=== PATIENT | female | born 1990 | race Caucasian/White ===

== ENCOUNTER 2020-12-09 10:52 | Inpatient (IN) | payer MEDICAID ==
[2020-12-09] VITALS (17 sets, daily range): BP systolic 77–116; BP diastolic 35–73; PULSE 52–77; TEMP 97.5–98.3
[~2020-12-09] VITALS: Ht 162.6 cm; Wt 101.8 kg
[2020-12-09] MEDS ORDERED: PRENATAL TABLET PO (11:05)
[2020-12-09] MEDS ORDERED: TUMS500 MG (11:06)
[2020-12-09 11:42] LABS: BASO % 0.1 % (0.0-2.0); EOS % 0.1 % (0-4.0); GRAN # 7.5 (1.4-6.5); GRAN % 78.8 % (42.2-75.2); HEMOGLOBIN 10.1 g/dl (12.5-16.0); LYMPH # 1.5 (1.2-3.4); LYMPH % 16.2 % (20.0-51.0); MEAN CELL VOLUME 83 fl (80.0-100.0); MEAN CORPUSCULAR HEMOGLOBIN 26 pg (27.0-31.0); MEAN CORPUSCULAR HGB CONC 32 g/dl (33.0-37.0); MEAN PLATELET VOLUME 10.2 fl (7.4-10.4); MONO # 0.4 (0.1-0.6); MONO % 4.4 % (1.7-9.3); PLATELET COUNT 245 K/mm3 (130-400); RED BLOOD COUNT 3.89 M/mm3 (4.10-5.30)
[2020-12-09 11:43] LABS: HEMATOCRIT 32.1 % (37.0-47.0)
--- NOTE | 2020-12-09 13:00 | NUR ---
PT AMBULATES TO SUITE WITH THIS RN AND . SITS ON EDGE OF OR BED FOR SPINAL PLACEMENT BY SOPHIE RODRIGUEZ. REPOSITIONED LYING DOWN AFTER SPINAL WITH BLANKET WEDGE UNDER RIGHT HIP. FHT'S 128. GRULLON CATHETER PLACED. DURAPREP TO ABDOMEN. DELIVERY OF FEMALE INFANT BY DR BENITEZ AND DR RICHMOND.
--- NOTE | 2020-12-09 13:40 | NUR ---
PT TO PACU AFTER DISCHARGE FROM OPERATING ROOM. AWAKE AND ALERT. DENIES PAIN. FUNDUS FIRM WITH SMALL AMOUNT OF CLOTS EXPRESSED WITH FUNDAL MASSAGE. ASSESSMENT COMPLETED.
--- NOTE | 2020-12-09 14:15 | NUR ---
PT TO ROOM AFTER DISCHARGE FROM PACU. AWAKE AND ALERT. FUNDUS FIRM WITH SMALL AMOUNT OF BLEEDING. DENIES PAIN
--- NOTE | 2020-12-09 17:39 | NUR ---
GRULLON EMPTIED. URINE VERY CONCENTRATED. ENCOURAGED PT TO DRINK LOTS OF WATER. PT REPORTS "I HAVEN'T BEEN DRINKING. I'VE JUST BEEN SLEEPING."
[2020-12-10 04:00] VITALS: BP 110/64; PULSE 72; TEMP 98.1
[2020-12-10 07:17] LABS: HEMATOCRIT 30.9 % (37.0-47.0); HEMOGLOBIN 9.6 g/dl (12.5-16.0)
[2020-12-10 07:25] VITALS: BP 111/54; PULSE 78; TEMP 98.7
[2020-12-10] MEDS ORDERED: IBU600 MG PO (07:48)
[2020-12-10] MEDS ORDERED: PERCOCET 325 MG1 TA2 PO (07:48)
--- NOTE | 2020-12-10 08:58 | NUR ---
Initial visit; Family thanked [employer] Senior Sergeant for offering congratulations and God's blessings for the of their daughter. Infantry Senior Sergeant thanked family for choosing [facility].
[2020-12-10 12:15] VITALS: BP 109/68; PULSE 85; TEMP 98.4
[2020-12-10 17:30] VITALS: BP 100/50; PULSE 71; TEMP 98
[2020-12-10 19:10] VITALS: BP 103/65; PULSE 67; TEMP 97.9
[2020-12-11 02:30] VITALS: BP 103/74; PULSE 53; TEMP 98
[2020-12-11 07:15] VITALS: BP 113/50; PULSE 62; TEMP 97.8
[2020-12-11 16:15] VITALS: BP 121/62; PULSE 70; TEMP 98.4
[2020-12-11 20:00] VITALS: BP 110/56; PULSE 60; TEMP 97.5
[2020-12-12 01:00] VITALS: BP 124/68; PULSE 66; TEMP 97.8
[2020-12-12 08:15] VITALS: BP 109/63; PULSE 69; TEMP 97.7
--- NOTE | 2020-12-12 10:50 | NUR ---
1045 DISCHARGE INSTRUCTIONS REVIEWED WITH PATIENT. PATIENT VERBALIZED UNDERSTANDING. WILL NOTIFY THIS RN WHEN READY TO LEAVE.
--- NOTE | 2020-12-12 11:05 | NUR ---
1100 ALL PERSONAL BELONGINGS GATHERED FROM PATIENT ROOM. PATIENT LEFT AMBULATORY AND IN NO APPARENT DISTRESS. PATIENT ACCOMPANIED BY SPOUSE AND THIS RN.
== END 2020-12-12 11:00 | disposition home or self-care (01) | DRG 788 ==
LOC: OB 10:52
PROVIDERS: ADMIT Obstetrics & Gynecology
PROC: 10D00Z1 Extraction of Products of Conception, Low, Open Approach (ICD-10-PCS; principal; 2020-12-09)
DX: O34.211 Maternal care for low transverse scar from previous cesarean delivery (principal); Z37.0 Single live birth; O24.420 Gestational diabetes mellitus in childbirth, diet controlled; O99.02 Anemia complicating childbirth; D64.9 Anemia, unspecified; Z3A.38 38 weeks gestation of pregnancy
CPT/HCPCS: J0690; J1100; J1885; J2370; J2590; J7120

== ENCOUNTER 2023-02-15 20:49 | Inpatient (IN) | payer MEDICAID ==
[2023-02-15] VITALS (10 sets, daily range): BP systolic 93–144; BP diastolic 56–99; PULSE 48–67
[~2023-02-15] VITALS: Ht 162.6 cm; Wt 96.4 kg
[~2023-02-15 20:49] MED LIST: IBU600 MG PO; PERCOCET 325 MG1 TA2 PO; PRENATAL TABLET PO; TUMS500 MG
--- NOTE | 2023-02-15 20:50 | NUR ---
2049- PT PRESENTS TO LDR COMPLAINING OF CONTRACTIONS, AMBULATORY TO ROOM LR3, CHANGED INTO GOWN. 2053- EFM X2 APPLIED. PT DENIES LEAKING AMNIOTIC FLUID, DENIES VAGINAL BLEEDING, AND STATES SHE IS FEELING BABY MOVE. SHE STATES SHE HAS BEEN HAVING "SOME" CONTRACTIONS ALL DAY BUT GOT MORE UNCOMFORTABLE AROUND 1900 TONIGHT. STATES SHE HAS NOT REALLY FELT LABOR CONTRACTIONS BEFORE WITH HER OTHER PREGNANCIES AND STATES "THIS REALLY HURTS." PT IS KNOWN TO HAVE UTERINE WINDOW WITH THIS AND ABDOMEN IS PALPATED SOFT BETWEEN CONTRACTIONS THE MONITORS ARE APPLIED. 2057- SVE BY THIS NURSE 0-1/-3 WITH VERY POSTERIOR CERVIX. NO FLUID POOLING OR BLOOD NOTED WITH EXAM.
--- NOTE | 2023-02-15 21:08 | NUR ---
2107- MONITORS ADJUSTED. 2109- O2 SAT MONITOR REMOVED FOR IV START. 2115- MONITORS ADJUSTED. 2124- CONSENTS SIGNED AT THIS TIME.
--- NOTE | 2023-02-15 21:19 | NUR ---
Dr. Whelan at pt bedside. Pt evaluated, strip reviewed. POC for section POC discussed. Risks and benefits of section discussed. Questions, concerns, and needs encouraged. Pt verbalized understanding and agreement of POC with no questions, concerns, and needs.
[2023-02-15 21:21] LABS: BASO % 0.1 % (0.0-2.0); GRAN # 11.9 K/mm3 (1.4-6.5); GRAN % 85.3 % (42.2-75.2); HEMATOCRIT 33.7 % (37.0-47.0); HEMOGLOBIN 11.1 g/dl (12.5-16.0); LYMPH # 1.3 K/mm3 (1.2-3.4); LYMPH % 9.1 % (20.0-51.0); MEAN CELL VOLUME 80 fl (80.0-100.0); MEAN CORPUSCULAR HEMOGLOBIN 27 pg (27-31); MEAN CORPUSCULAR HGB CONC 33 g/dl (33.0-37.0); MONO # 0.6 K/mm3 (0.1-0.6); MONO % 4.1 % (1.7-9.3); PLATELET COUNT 276 K/mm3 (130-400); RED BLOOD COUNT 4.19 M/mm3 (4.10-5.30); REDCELL DISTRIBUTION WIDTH-CV 13.8 % (11.5-14.5)
--- NOTE | 2023-02-15 21:30 | NUR ---
This nurse and Judi Patino, RN at pt bedside prepping pt for section. Pt abd scrubbed with soap and water. Pt mons pubis area clipped. Pt PPE donned. Pt spouse PPE given an donned. This nurse and Judi Patino, air transport professionals pt, via hospital bed, to OR for emergent section.
[2023-02-15] MEDS ORDERED: PRENATAL TABLET PO (23:15)
[2023-02-15] MEDS ORDERED: GLUCOPHAGE500 MG/TAB PO (23:16)
[2023-02-15] MEDS ORDERED: TUMS EXTRA STR750 MG PO (23:16)
[2023-02-16] VITALS (9 sets, daily range): BP systolic 105–124; BP diastolic 43–76; PULSE 48–87; TEMP 98.1
--- NOTE | 2023-02-16 00:22 | NUR ---
[id number]: FHR tracing intermittently due to position. This nurse at pt bedside palpating pt abdomen, with pt consent and explanation, attempting to readjust external FHR monitor. [id number], monitors adjusted. 2121, monitors adjusted. 2127, monitors adjusted. 2128, monitors adjusted. 2133: Timeout not completed due to emergent nature for section and pt need of general anesthesia.
--- NOTE | 2023-02-16 00:35 | NUR ---
2133: This nurse attempts to find FHR in the OR. Unable to obtain FHR, Dr. Whelan states to quit attempting due to the emergent nature of the case.
[2023-02-16 07:46] LABS: HEMATOCRIT 27.6 % (37.0-47.0)
[2023-02-16 07:47] LABS: HEMOGLOBIN 8.8 g/dl (12.5-16.0)
[2023-02-16] MEDS ORDERED: TYLENOL 500MG500 MG PO (08:56)
[2023-02-16] MEDS ORDERED: IBU600 MG PO (08:56)
[2023-02-16] MEDS ORDERED: ROXICODONE 55 MG/TAB PO (08:56)
--- NOTE | 2023-02-16 09:34 | NUR ---
Initial visit attempt; Family resting, infant sent to [facility]. Boom Worker left card offering God's blessings and letting the family know of the availability of Spiritual Care at our hospital.
--- NOTE | 2023-02-16 12:20 | NUR ---
1220 PATIENT UP TO BATHROOM BY HERSELF, TOLERATE WELL VOIDS 250 CC. PATIENT IS SITTING UP IN BED PUMPING AT THIS TIME.
--- NOTE | 2023-02-16 12:27 | NUR ---
0900 [address] BENITEZ. ORDERS TO HAVE PATIENT CHECK HER BLOOD SUGARS A FEW TIMES NEXT COUPLE DAYS AND TO NOTIFY IF ABOVE 200. VERBAL UNDERSTANDING NOTED. INC CDI. MINIMAL BLEEDING NOTED WHEN UP TO BATHROOM.
--- NOTE | 2023-02-16 14:29 | NUR ---
1400 patient wanting to leave to go to nicu in [place]. patient ate lunch, tolerates well. walks in halls without problems. voids all 3 voids. taught patient how to use incentive spitometor. verbal understaning noted. encourage patient to rest between visits. Dr cortes orders to dismiss to home at this time. 1430 patient ambulates well. patient dismiss to pov via wheelchair.
== END 2023-02-16 14:34 | disposition home or self-care (01) | DRG 786 ==
LOC: LDRO 20:49 → LDR 21:09 → OB 21:09
PROVIDERS: ADMIT Obstetrics & Gynecology
PROC: 10D00Z1 Extraction of Products of Conception, Low, Open Approach (ICD-10-PCS; principal; 2023-02-15)
DX: O60.14X0 Preterm labor third trimester with preterm delivery third trimester, not applicable or unspecified (principal); O45.93 Premature separation of placenta, unspecified, third trimester; D62 Acute posthemorrhagic anemia; O34.211 Maternal care for low transverse scar from previous cesarean delivery; O90.81 Anemia of the puerperium; J45.909 Unspecified asthma, uncomplicated; O99.52 Diseases of the respiratory system complicating childbirth; O76 Abnormality in fetal heart rate and rhythm complicating labor and delivery; O24.425 Gestational diabetes mellitus in childbirth, controlled by oral hypoglycemic drugs; Z3A.35 35 weeks gestation of pregnancy; Z37.0 Single live birth
CPT/HCPCS: J2210; J7120